=== PATIENT | female | born 1995 | race American Indian/Alaskan Native ===

== ENCOUNTER 2020-03-26 16:20 | Inpatient (IN) | payer OTHER ==
[~2020-03-26] VITALS: Ht 167.6 cm; Wt 65.8 kg
[2020-03-26 17:22] LABS: BASOPHILS ABSOLUTE AUTO 0.07 K/mm3 (0.00-0.23); BASOPHILS PERCENT AUTO 1 % (0-2); EOSINOPHILS ABSOLUTE AUTO 0.17 K/mm3 (0.00-0.68); EOSINOPHILS PERCENT AUTO 2 % (0-6); Hematocrit 43.5 % (33.0-51.0); Hemoglobin 14.3 g/dL (11.5-16.0); IMMATURE GRAN ABSOLUTE AUTO 0.04 K/mm3 (0.00-0.10); IMMATURE GRAN PERCENT AUTO 0 % (0-1); LYMPHOCYTES ABSOLUTE AUTO 3.96 K/mm3 (0.84-5.20); LYMPHOCYTES PERCENT AUTO 34 % (21-46); MONOCYTES ABSOLUTE AUTO 0.51 K/mm3 (0.16-1.47); MONOCYTES PERCENT AUTO 4 % (4-13); Mean Corpuscular HGB 30.7 pg (26.0-34.0); Mean Corpuscular HGB Conc 32.9 g/dL (31.5-36.5); Mean Corpuscular Volume 93 fL (80-100); Mean Platelet Volume 8.6 fL (9.1-12.4); NEUTROPHILS ABSOLUTE AUTO 6.89 K/mm3 (1.96-9.15); NEUTROPHILS PERCENT AUTO 59 % (41-73); Platelet Count 384 K/mm3 (150-400); RDW Coefficient Variation 12.1 % (11.7-14.2); RDW Standard Deviation 41.9 fL (35.1-46.3); Red Blood Cell Count 4.66 M/mm3 (3.80-5.20); White Blood Cell Count 11.64 K/mm3 (4.00-11.30)
[2020-03-26 17:37] LABS: Alanine Aminotransfer (ALT/SGP 18 U/L (12-78); Albumin, Blood 3.5 g/dL (3.4-5.0); Alk Phos 69 U/L (50-136); Anion Gap 10 mmol/L (6-16); Aspartate Aminotrans (AST/SGOT 22 U/L (12-37); Bilirubin, Total 0.5 mg/dL (0.1-1.0); Blood Urea Nitrogen 12 mg/dL (8-24); Bun/Creatinine Ratio 12.8 (12.0-20.0); CO2, Blood 20 mmol/L (21-32); Calcium, Blood 8.2 mg/dL (8.5-10.1); Chloride, Blood 110 mmol/L (98-108); Creatinine, Blood 0.94 mg/dL (0.40-1.00); Globulin, Blood 3.6 g/dL (2.2-4.0); Glomerular Filtration Rate >60 (60-); Glucose, Blood 117 mg/dL (70-99); Potassium, Blood 3.3 mmol/L (3.5-5.5); Sodium, Blood 140 mmol/L (136-145); Total Protein, Blood 7.1 g/dL (6.4-8.2)
[2020-03-27 04:12] LABS: BASOPHILS ABSOLUTE AUTO 0.04 K/mm3 (0.00-0.23); BASOPHILS PERCENT AUTO 0 % (0-2); EOSINOPHILS ABSOLUTE AUTO 0.01 K/mm3 (0.00-0.68); EOSINOPHILS PERCENT AUTO 0 % (0-6); Hemoglobin 12.3 g/dL (11.5-16.0); IMMATURE GRAN ABSOLUTE AUTO 0.03 K/mm3 (0.00-0.10); IMMATURE GRAN PERCENT AUTO 0 % (0-1); LYMPHOCYTES ABSOLUTE AUTO 2.23 K/mm3 (0.84-5.20); LYMPHOCYTES PERCENT AUTO 19 % (21-46); MONOCYTES ABSOLUTE AUTO 0.79 K/mm3 (0.16-1.47); MONOCYTES PERCENT AUTO 7 % (4-13); Mean Corpuscular HGB 30.8 pg (26.0-34.0); Mean Corpuscular HGB Conc 33.2 g/dL (31.5-36.5); Mean Corpuscular Volume 93 fL (80-100); Mean Platelet Volume 8.8 fL (9.1-12.4); NEUTROPHILS ABSOLUTE AUTO 8.55 K/mm3 (1.96-9.15); NEUTROPHILS PERCENT AUTO 73 % (41-73); Platelet Count 299 K/mm3 (150-400); RDW Coefficient Variation 12.2 % (11.7-14.2); RDW Standard Deviation 41.4 fL (35.1-46.3); White Blood Cell Count 11.65 K/mm3 (4.00-11.30)
[2020-03-27 04:26] LABS: Anion Gap 8 mmol/L (6-16); Blood Urea Nitrogen 8 mg/dL (8-24); Bun/Creatinine Ratio 11.2 (12.0-20.0); CO2, Blood 23 mmol/L (21-32); Calcium, Blood 8.1 mg/dL (8.5-10.1); Chloride, Blood 107 mmol/L (98-108); Creatinine, Blood 0.72 mg/dL (0.40-1.00); Glomerular Filtration Rate >60 (60-); Glucose, Blood 104 mg/dL (70-99); Potassium, Blood 4.1 mmol/L (3.5-5.5); Sodium, Blood 138 mmol/L (136-145)
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
--- NOTE | 2020-03-27 12:45 | NUR ---
History, Chart, Medications and Allergies reviewed before start of procedure.Patient states colon prep results clear. Lungs clear T/O to Auscultation. Pre-Op teaching done. Pt verbalizes understanding. Patient confirms NPO status and agrees with scheduled surgery.
--- NOTE | 2020-03-27 16:17 | NUR ---
POST OP: REPORT RECEIVED FROM GREGORY, WINCHER. PT TO UNIT AT ABOUT 1430. UPON ASSESSMENT PT IS A/O, VSS. SENSATION INTACT TO L ARM, WOUND DRESSING WNL. PT REPORTS PAIN IS TOLERABLE AT THIS TIME. WILL CTM
--- NOTE | 2020-03-27 18:02 | NUR ---
SUMMARY: NO ACUTE CHANGE SINCE POST OP. VSS PT IS A/O. SURGICAL SITE WNL, L ARM IN SLING. PT HAS BEEN UP TO VOID, ABLE TO EAT. HAS REPORTED MINIMAL PAIN, NO N/V. PT HAS AGREED TO STAY THE NIGHT TO RECEIVE IV ANTIBIOTICS. PT MOTHER MADE AWARE OF THIS WELL DR. HOBBS. WILL CTM AND REPORT TO NOC RN
--- NOTE | 2020-03-27 20:18 | NUR ---
PT REQ TO LEAVE AT 0500 AFTER ABX COMPLETED. PT EDUCATED ON NEED FOR DC ORDERS FROM MD. PT VERBALIZED FRUSTRATION W/BEING UNABLE TO LEAVE AT DESIRED TIME. PT AGREEABLE TO STAY UNTIL AFTER PT COMPLETED IN AM AND DC ORDERS RECEIVED.
--- NOTE | 2020-03-28 07:31 | NUR ---
RECVD REPORT FROM PREVIOUS RN KENTRELL, PT SLEEPING IN BED, BED IN LOWEST POSITION, BED RAILS UP X 2, CALL LIGHT WITHIN REACH
--- NOTE | 2020-03-28 07:37 | NUR ---
POD 1 S/P I&D OF CHERYL. PT VSS. DRESSING CDI, SLING IN PLACE. POWER MARKETER WEAK, PT DOES REP MILD NUMBNESS IN PINKY FINGER. PAIN MGD W/NORCO AND TORADOL W/REP RELIEF. PT UP INDEP IN ROOM. PLAN FOR PT THIS AM. PT DENIES SAFETY CONCERNS AT HOME, IS EAGER TO D/C HOME THIS AM. REPORT GIVEN TO DAY RN.
[2020-03-28] MEDS ORDERED: HYDR1TAB94 PO (07:55)
[2020-03-28] MEDS ORDERED: ACET500 PO (07:55)
--- NOTE | 2020-03-28 09:30 | NUR ---
0900-pt awake, states she is eager to leave. called dr sepulveda for wound care order clarification. provider's office in the process of sending all necessary referral documents to payer specialist. pt notified of Dr Sepulveda's orders to followup with wound care within 4-5 days. pt and this RN spoke with pt's mother who is helping set up appt. Mother states she is in contact with both providers office and the appt is getting set up. pt refused PT, encouraged to work with OT so she may know how to provide ADL. pt agrees. 924-discharge instructions completed, provided printed material and prescriptions, pt states she understands instructions, peripheral IVs x 2 removed WNL, pt belongings provided, toiletries provided to pt for morning care which she completed. OT did brief eval/treatment with pt. 929-pt refuses wheelchair out to awaiting vehicle.
--- NOTE | 2020-03-28 14:06 | NUR ---
03/28/20 1406 Caprice High VERIFICATIONS, AUDITS.
== END 2020-03-28 09:48 | disposition home or self-care (01) | DRG 563 ==
LOC: ER 16:20 → ERHOLD 16:21 → SURS 18:48 → ERHOLD 20:15 → ER 20:15 → ERHOLD 22:10 → SURS 22:10
PROVIDERS: Orthopaedic Surgery; Otolaryngology; Physician Assistant; ADMIT Surgery
PROC: 0HBBXZZ Excision of Right Upper Arm Skin, External Approach (ICD-10-PCS; principal; 2020-03-27 14:45)
PROC: 09Q1XZZ Repair Left External Ear, External Approach (ICD-10-PCS; 2020-03-27 14:45)
DX: S42.102A Fracture of unspecified part of scapula, left shoulder, initial encounter for closed fracture (principal); F17.210 Nicotine dependence, cigarettes, uncomplicated; S09.91XA Unspecified injury of ear, initial encounter; S80.211A Abrasion, right knee, initial encounter; Y92.9 Unspecified place or not applicable; V49.88XA Car occupant (driver) (passenger) injured in other specified transport accidents, initial encounter
CPT/HCPCS: 12032; 36415; 70450; 70486; 71260; 72125; 73060; 73090; 73562-RT; 74177; 80048; 80053; 84484; 84703; 85025; 90471; 90714; 93005; 93010; 94762; 96361-59; 96374-59; 97165; 97535; 99285-25; A9270-GY; J0690; J1885; J2250; J2405; J2704; J3010; J7030; J7120; Q9967